=== PATIENT | female | born 2000 ===

== ENCOUNTER 2021-03-27 00:48 | Emergency (ER) | payer OTHER ==
[2021-03-27 02:04] LABS: HEMOGLOBIN 15.1 gm/dl (12.3-15.3); RED BLOOD COUNT 5.18 M/UL (4.00-5.10); WHITE BLOOD COUNT 27.9 K/UL (4.5-11.0)
[2021-03-27 02:23] LABS: BUN/CREATININE RATIO 10 (0-10)
[2021-03-27] MEDS ORDERED: LODINE CAP 300300 MG PO (05:12)
[2021-03-27] MEDS ORDERED: NORFLEX 100 MG100 MG PO (05:12)
== END 2021-03-27 07:49 | disposition home or self-care (01) ==
LOC: ER1 00:48
PROVIDERS: Physician Assistant
DX: S01.112A Laceration without foreign body of left eyelid and periocular area, initial encounter (principal); S80.02XA Contusion of left knee, initial encounter; S80.01XA Contusion of right knee, initial encounter; S40.812A Abrasion of left upper arm, initial encounter; S13.4XXA Sprain of ligaments of cervical spine, initial encounter; S33.5XXA Sprain of ligaments of lumbar spine, initial encounter; S23.3XXA Sprain of ligaments of thoracic spine, initial encounter; V49.40XA Driver injured in collision with unspecified motor vehicles in traffic accident, initial encounter; Y92.410 Unspecified street and highway as the place of occurrence of the external cause; R07.89 Other chest pain; Z23 Encounter for immunization
CPT/HCPCS: 12013; 70450; 70486; 71260; 72125; 72128; 72131; 73130; 73564; 80053; 84703; 85025; 90471; 90715; 99284; G0480; Q9967